=== PATIENT | male | born 1955 | race Caucasian/White ===

== ENCOUNTER 2017-01-28 08:02 | Inpatient (IN) | payer BC ==
[~2017-01-28] VITALS: Ht 180.3 cm; Wt 86.8 kg
[2017-01-28 09:32] LABS: HEMATOCRIT 44.3 % (38.0-50.0); MCH 31.1 PG (29.0-34.0); MCHC 35.4 G/DL (30.0-36.0); MCV 87.7 FL (86-99); MEAN PLAT.VOLUME 9.9 uM^3 (9.0-12.4); PLATELET COUNT 196 K/uL (156-360); RBC DIS.WIDTH-CV 11.2 % (11.8-14.6); RBC DIS.WIDTH-SD 35.9 % (39-53); RED BLOOD COUNT 5.05 M/uL (4.00-5.50); WHITE BLOOD COUNT 17.7 K/uL (4.1-10.2)
[2017-01-28 09:36] LABS: PROTHROMBIN TIME 10.7 SEC (10.2-12.9)
[2017-01-28 09:38] LABS: PTT 28.9 SEC (25-37)
[2017-01-28 09:48] LABS: CHLORIDE 104 mEq/L (99-109); POTASSIUM 4.3 mEq/L (3.7-5.4); SODIUM 140 mEq/L (136-147)
[2017-01-28 09:51] LABS: GLUCOSE 186 mg/dL (70-99)
[2017-01-28 09:52] LABS: ANION GAP 14 MEQ/L (2-14)
[2017-01-28 09:53] LABS: TOTAL BILIRUBIN 0.7 mg/dL (0.0-1.0)
[2017-01-28 09:54] LABS: TROP-I INTERPRETATION NEGATIVE; TROPONIN-I < 0.01 ng/mL (0.0-0.30)
[2017-01-28 09:54] LABS: ALKALINE PHOSPHATASE 82 IU/L (3-129); GFR ESTIMATE (CALCULATED) > 59 mL/min/
[2017-01-28 09:55] LABS: UREA NITROGEN (BUN) 20 mg/dL (9-23)
[2017-01-28 10:23] LABS: EOSINOPHIL (%) 0.1 % (0-5); IMMATURE GRANULOCYTE (%) 0.3 % (0.0-0.7); IMMATURE GRANULOCYTE COUNT 0.1 K/uL; INSTRUMENT ABS NEUTROPHIL CT 8.2 K/uL; LYMPHOCYTE COUNT 8.6 K/uL (1.0-2.8); MONOCYTE (%) 4.5 % (3-12); MONOCYTE COUNT 0.8 K/uL (0-0.8); NEUTROPHIL (%) 46.3 % (45-76); NEUTROPHIL COUNT 8.2 K/uL (1.8-6.4)
[2017-01-28] MEDS ORDERED: XALATAN2.5 ML LEFT EYE (12:24)
[2017-01-28 16:06] LABS: TROP-I INTERPRETATION NEGATIVE; TROPONIN-I < 0.01 ng/mL (0.0-0.30)
[2017-01-28 16:22] VITALS: BP 149/106
[2017-01-28 16:53] LABS: ADD MIUA? NO; BILIRUBIN NEGATIVE; BLOOD NEGATIVE; COLOR STRAW ((YELLOW)); GLUCOSE (STRIP) NEGATIVE; KETONES NEGATIVE; LEUKOCYTES NEGATIVE; NITRITE NEGATIVE; PROTEIN (STRIP) NEGATIVE; SPECIFIC GRAVITY 1.008 (1.000-1.030); UCUL ADDED? NO; UROBILINOGEN 0.2 MG/DL (0.2-1.0)
[2017-01-28 19:35] VITALS: BP 138/95
[2017-01-28 22:19] LABS: TROP-I INTERPRETATION NEGATIVE; TROPONIN-I < 0.01 ng/mL (0.0-0.30)
[2017-01-28 23:48] VITALS: BP 148/98
[2017-01-29 03:41] VITALS: BP 147/96
[2017-01-29 07:43] VITALS: BP 137/94
[2017-01-29 08:50] LABS: HEMATOCRIT 43.6 % (38.0-50.0); MCHC 35.3 G/DL (30.0-36.0); MCV 87.9 FL (86-99); MEAN PLAT.VOLUME 9.4 uM^3 (9.0-12.4); PLATELET COUNT 202 K/uL (156-360); RBC DIS.WIDTH-CV 11.3 % (11.8-14.6); RBC DIS.WIDTH-SD 36.2 % (39-53); RED BLOOD COUNT 4.96 M/uL (4.00-5.50); WHITE BLOOD COUNT 15.7 K/uL (4.1-10.2)
[2017-01-29 09:10] LABS: ANION GAP 7 MEQ/L (2-14); CHLORIDE 104 MEQ/L (99-109); GFR ESTIMATE (CALCULATED) > 59 mL/min/; GLUCOSE 123 mg/dL (70-99); POTASSIUM 4.5 MEQ/L (3.7-5.4); SAMPLE HEMOLYSIS CHECK 0; SAMPLE ICTERIC CHECK 0; SAMPLE LIPEMIA CHECK 0; SODIUM 141 MEQ/L (136-147); UREA NITROGEN (BUN) 15 mg/dL (9-23)
[2017-01-29 11:00] VITALS: BP 148/100
[2017-01-29 15:07] VITALS: BP 145/89
[2017-01-29 20:00] VITALS: BP 146/96
[2017-01-30] VITALS (8 sets, daily range): BP systolic 135–158; BP diastolic 83–102
[2017-01-30 05:57] LABS: HEMATOCRIT 41.7 % (38.0-50.0); MCH 30.9 PG (29.0-34.0); MCV 88.3 FL (86-99); MEAN PLAT.VOLUME 9.7 uM^3 (9.0-12.4); PLATELET COUNT 208 K/uL (156-360); RBC DIS.WIDTH-CV 11.3 % (11.8-14.6); RBC DIS.WIDTH-SD 36.5 % (39-53); RED BLOOD COUNT 4.72 M/uL (4.00-5.50); WHITE BLOOD COUNT 16.2 K/uL (4.1-10.2)
[2017-01-30 06:31] LABS: ANION GAP 6 MEQ/L (2-14); CHLORIDE 103 MEQ/L (99-109); GFR ESTIMATE (CALCULATED) > 59 mL/min/; GLUCOSE 108 mg/dL (70-99); POTASSIUM 4.8 MEQ/L (3.7-5.4); SAMPLE HEMOLYSIS CHECK 0; SAMPLE ICTERIC CHECK 0; SAMPLE LIPEMIA CHECK 0; SODIUM 139 MEQ/L (136-147); UREA NITROGEN (BUN) 16 mg/dL (9-23)
[2017-01-30 07:03] LABS: ABS NEUTROPHIL COUNT 8.9; EOSINOPHIL ABS CT 0; INSTRUMENT ABS NEUTROPHIL CT 4.9 K/uL; PLAT.SUFFICIENCY ADEQUATE
[2017-01-31 04:17] VITALS: BP 141/101
[2017-01-31 07:43] VITALS: BP 127/95
[2017-01-31 11:47] VITALS: BP 141/90
[2017-01-31] MEDS ORDERED: SPORANOX100 MG PO (13:19)
[2017-01-31] MEDS ORDERED: DOXYCYCLINE HY100 MG PO (13:19)
[2017-02-01 07:32] LABS: INTERNAL CONTROL VALID? YES
[2017-02-03 21:21] LABS: Mycelial Phase Antibody <1:8 (<1:8); Yeast Phase Anitbody <1:8 (<1:8)
== END 2017-01-31 14:30 | disposition home or self-care (01) | DRG 194 ==
LOC: EME 08:02 → ENRESERV 11:27 → EDOF 12:54 → 5SOUTH 12:54 → ENRESERV 12:55 → EDOF 12:59 → 5SOUTH 15:02
PROVIDERS: Emergency Medicine; Hospitalist; Internal Medicine; Internal Medicine Pulmonary Disease; Nurse Practitioner Adult Health
DX: J18.9 Pneumonia, unspecified organism (principal); J90 Pleural effusion, not elsewhere classified; J98.11 Atelectasis; I16.0 Hypertensive urgency; I10 Essential (primary) hypertension; H40.9 Unspecified glaucoma; Z82.49 Family history of ischemic heart disease and other diseases of the circulatory system
CPT/HCPCS: 71010; 71020; 71030; 71275; 80048; 80053; 81003; 82945; 83605; 83880; 83986 90; 84157; 84443; 84484; 85025; 85027; 85379; 85610; 85730; 86038; 86698 90; 87040; 87070; 87205; 87449; 89051; 93005; 93306; 94640; 99202; 99281; 99284; J0696; J1644; J1940; J7030; J7050; S0028